=== PATIENT | male | born 1985 | race Caucasian/White ===

== ENCOUNTER 2018-02-12 07:56 | Emergency (ER) | payer BC ==
[~2018-02-12] VITALS: Ht 188 cm; Wt 104.5 kg
[~2018-02-12 07:56] MED LIST: CEPHALEXIN500 M1 PO; NO HOME MEDICATIONS; NORCO 325 MG-51 TAB PO
[2018-02-12 08:04] VITALS: BP 142/81; TEMP 98.5
[2018-02-12] MEDS ORDERED: NORCO 325 MG-51 TAB PO (08:20)
[2018-02-12] MEDS ORDERED: BACTRIM DS 8001 TAB PO (08:59)
[2018-02-12 09:00] VITALS: PULSE 81
== END 2018-02-12 09:02 | disposition home or self-care (01) ==
LOC: COL.ER 07:56
DX: L05.01 Pilonidal cyst with abscess (principal)

== ENCOUNTER → 2018-02-14 | Outpatient (CLI) | payer BC ==
[~2018-02-14] MED LIST changes: +BACTRIM DS 8001 TAB PO
== END ==
LOC: ZCOL.LAB 14:29
DX: L05.01 Pilonidal cyst with abscess (principal)